=== PATIENT | male | born 1970 | race Caucasian/White ===

== ENCOUNTER 2020-02-06 10:25 | Outpatient (REF) | payer BC, SELFPAY | END 2020-02-06 10:26 | disposition home or self-care (01) | LOC: HO.LAB 10:25 | PROVIDERS: PCP Internal Medicine; Visit Provider Internal Medicine | DX: Z20.828 Contact with and (suspected) exposure to other viral communicable diseases (principal) | CPT/HCPCS: C9803; U0003 ==

== ENCOUNTER 2021-02-25 09:28 | Outpatient (REF) | payer BC, SELFPAY ==
[2021-02-25 10:12] LABS: COVID-19 Test Positive (Negative)
== END 2021-02-25 09:29 | disposition home or self-care (01) ==
LOC: HO.LAB 09:28
PROVIDERS: Visit Provider Internal Medicine
DX: Z20.822 Contact with and (suspected) exposure to COVID-19 (principal)
CPT/HCPCS: 87635; C9803